=== PATIENT | male | born 1940 | race Caucasian/White ===

== ENCOUNTER 2018-08-04 18:29 | Inpatient (IN) | payer MEDICARE, OTHER | END 2018-08-08 16:45 | LOC: ER 18:29 → CICU 2S 08-05 01:22 → PCU 3S 08-07 16:20 → CICU 2S 08-05 01:26 → PCU 3S 08-07 16:44 | DX: I21.4 Non-ST elevation (NSTEMI) myocardial infarction (principal); N17.9 Acute kidney failure, unspecified; E87.0 Hyperosmolality and hypernatremia; E86.0 Dehydration ==